=== PATIENT | male | born 1960 | race Two or more races ===

== ENCOUNTER 2017-01-13 08:27 | Emergency (ER) | payer MEDICAID, OTHER ==
[2017-01-13 08:38] VITALS: RESP 16; O2SAT 97
[2017-01-13] MEDS ORDERED: DEXAMETHASONE 10 MG/ML VIAL IVP ONE (09:18)
[2017-01-13] MEDS ORDERED: FAMOTIDINE 20 MG/2 ML SDV IVP ONE (09:18)
[2017-01-13] MEDS ORDERED: TDAP ADULT 0.5 ML INJ (BOOSTRIX) IM ONE (09:18)
[2017-01-13] MEDS ORDERED: NS 1,000 ML IV ONE (09:18)
--- NOTE | 2017-01-13 09:24 | EDPHY ---
H & P Stated Complaint: Stung by ?bee on R hand 2 days ago;reaction is localized Source: Patient, Family, Program Trainer Exam Limitations: No limitations - Personal History Current Tetanus Diphtheria and Acellular Pertussis (TDAP): Yes - Social History Smoking Status: Current every day smoker HPI/ROS: CHIEF COMPLAINT: wasp sting, hand pain HISTORY OF PRESENT ILLNESS: Patient complains of sting to the right hand 2 days ago. This was 2:00 p.m. Wednesday. He thinks it was a wasp. This is over the ulnar side of the right hand , mid shaft of the metacarpal. There is some localized redness swelling and extreme itching to him. This has been steady foot worsening. No systemic rash. No difficulty breathing or swallowing. No swelling of the face or lips. No drooling. No chest pain or shortness of breath. No known allergies to insects. No other Associated complaints or modifying factors. HPI obtain with the aid of the [facility] certified [place] translator/interpreter REVIEW OF SYSTEMS: Ten systems reviewed and are negative unless otherwise noted in the HPI PAST MEDICAL HISTORY: Denies any medical history medications. SOCIAL HISTORY: Smoker. [place] primary language. Works and lives here in [place] FAMILY HISTORY: Noncontributory EXAMINATION General Appearance: Alert, no distress Head: normocephalic, atraumatic Eyes: Pupils equal and round, no conjunctival pallor or injection ENT, Mouth: Mucous membranes moist. Uvula midline. Airway widely patent. No edema of the lips or tongue. No facial swelling. Neck: Normal inspection, supple, non-tender Respiratory: Lungs are clear to auscultation. No wheezing or rhonchi or crackles Cardiovascular: Regular rate and rhythm. No murmur. Neurological: GCS 15. A&O, nonfocal, normal gait Skin: Warm and dry. There is localized erythema and mild urticaria to the right hand, primarily over the dorsum and ulnar aspect. No cellulitis. No purulence. There is a small area consistent with vector inoculation. No identifiable stinger noted. Extremities: Mild tenderness over the right hand. Full range of motion without deficit. Neurovascular intact distally with brisk cap refill. No palpable fluctuance or evidence of abscess. Psychiatric: Mood and affect normal DIFFERENTIAL DIAGNOSES: Including but not limited to vector inoculation, anaphylaxis, urticaria, localized allergic reaction MDM: 9:20 a.m. Localized reaction to the right hand due to insect sting. I do not appreciate any evidence of remnant of the stinger. I did explore the wound with sterile gloves and did not find 1. He does have a localized reaction without anaphylaxis. I have ordered IV fluid, IV Decadron, IV Benadryl and IV Pepcid. No need for epinephrine at this time. I will recheck. 9:43 a.m. I re-evaluated the patient. He remains stable. No airway involvement. He has received his IV push medications. I will continue to monitor. 10:10 a.m. I have re-evaluated the patient. He is feeling significantly better. Swelling has nearly resolved. He is able to move his hand and fingers without any deficits or difficulty. I discussed discharge home with prednisone, Benadryl in the evenings, Zyrtec during the day and Pepcid for the next 5 days. He is to follow up with worker's compensation [facility] as he informs me that this happened at work. He is comfortable with this plan. This was all discussed with the [facility] certified [place] translator/interpreter. He is discharged home stable condition SUPERVISION: Patient was evaluated in conjunction with the supervising physician. Please see their note for details. (Harris Bowling) Constitutional: Initial Vital Signs Temperature (C) 36.8 C 01/13/17 08:29 Heart Rate 80 01/13/17 08:29 Respiratory Rate 16 01/13/17 08:29 Blood Pressure 127/90 H 01/13/17 08:29 O2 Sat (%) 97 01/13/17 08:29 O2 Delivery Mode Room Air Allergies/Adverse Reactions: No Known Drug Allergies Allergy (Verified 01/13/17 09:24) Home Medications: Medication Instructions Recorded predniSONE [Deltasone] 60 mg PO DAILY #15 tablet 01/13/17 Medical Decision Making ED Course/Re-evaluation: I did not see this patient while he was in the emergency department. However his care was discussed with the PA while the patient was in the department. I agree with treatment plan and management (Ulises Soares) - Data Points Medications Given: Discontinued Medications Dexamethasone (Decadron Injection) 10 mg IVP EDNOW ONE Stop: 01/13/17 09:19 Last Admin: 01/13/17 09:28 Dose: 10 mg Diphenhydramine HCl (Benadryl Injection) 50 mg IVP EDNOW ONE Stop: 01/13/17 09:19 Last Admin: 01/13/17 09:31 Dose: 50 mg Diphtheria/Tetanus/Acell Pertussis (Boostrix) 0.5 ml IM .ONCE ONE Stop: 01/13/17 09:19 Last Admin: 01/13/17 09:34 Dose: 0.5 ml Famotidine (Pepcid) 20 mg IVP EDNOW ONE Stop: 01/13/17 09:19 Last Admin: 01/13/17 09:27 Dose: 20 mg Sodium Chloride (Ns) 1,000 mls @ 0 mls/hr IV EDNOW ONE; Wide Open PRN Reason: Protocol Stop: 01/13/17 09:19 Last Admin: 01/13/17 09:40 Dose: 1,000 mls Departure - Departure Disposition: Home, Routine, Self-Care Clinical Impression: Wasp sting Qualifiers: Encounter type: initial encounter Injury intent: accidental or unintentional Qualified Code(s): T63.461A - Toxic effect of venom of wasps, accidental ( unintentional), initial encounter Condition: Good Instructions: Insect Bite or Sting (ED), Anaphylaxis (ED) Additional Instructions: 1. Benadryl 25-50 mg every 6 hours as needed or Zyrtec once to twice daily for the next 5 days 2. Prednisone as prescribed to completion 3. Pepcid 20 mg twice daily for the next 5 days Four. Follow up with worker's compensation Clinic and primary care physician 1. Benadryl 25-50 mg cada 6 horas jeanne sea necesario o Zyrtec rowdy o dos veces por bonifacio para los proximos 5 rodrigez. 2. Prednisone jeanne recetado hasta que se leal completado. #. Pepcid 20 mg dos veces por bonifacio para los proximos 5 rodrigez. 4. Rosalee de seguimiento con tu [facility] y tu de cuidado primario. Prednisone (Deltasone) 20 mg tableta Vandana 60 mg por la boca cada bonifacio Referrals: Osmar Chau MD [place] [place] - As per Instructions Stand Alone Forms: Work Comp Follow Up Prescriptions: predniSONE [Deltasone] 60 mg PO DAILY #15 tablet Print Language: [place]
[2017-01-13 10:26] VITALS: BP 149/88; PULSE 72; TEMP 99.1
== END 2017-01-13 10:55 | disposition home or self-care (01) ==
DX: T63.461A Toxic effect of venom of wasps, accidental (unintentional), initial encounter (principal); F17.200 Nicotine dependence, unspecified, uncomplicated; E86.9 Volume depletion, unspecified
CPT/HCPCS: 96374; J1100; J1200